=== PATIENT | male | born 1995 | race Two or more races ===

== ENCOUNTER 2018-11-22 07:34 | Day surgery (SDC) | payer BC ==
[~2018-11-22] VITALS: Ht 190.5 cm; Wt 76.2 kg
[2018-11-22] VITALS (8 sets, daily range): BP systolic 107–125; BP diastolic 47–74
[2018-11-22] MEDS ORDERED: NKM (08:07)
--- NOTE | 2018-11-22 09:28 | Anethesia Preoperative Eval ---
Anesthesia Pre-op PMH/ROS General Date of Evaluation: Nov 22, 2018 Time of Evaluation: 09:23 Anesthesiologist: Martine ASA Score: ASA 2 Mallampati Score Class I : Soft palate, uvula, fauces, pillars visible Class II: Soft palate, uvula, fauces visible Class III: Soft palate, base of uvula visible Class IV: Only hard plate visible Mallampati Classification: Class II Surgeon: Jg Diagnosis: Abdominal pain Surgical Procedure: Colonosccopy Anesthesia History: none Family History: no anesthesia problems Allergies: Coded Allergies: No Known Allergies (Unverified , 11/22/18) Medications: see eMAR Patient NPO?: Yes Past Medical History Cardiovascular: Denies: HTN, CAD, [place], valve dz, arrhythmia, other Pulmonary: Denies: asthma, COPD, ANGELIKA, other Gastrointestinal/Genitourinary: Reports: GERD - mild; Denies: CRI, ESRD, other Neurologic/Psychiatric: Reports: depression/anxiety; Denies: dementia, CVA, TIA, other Endocrine: Denies: DM, hypothyroidism, steroids, other HEENT: Denies: cataract (L), cataract (R), glaucoma, [place] (L), [place] [facility] [facility] [place] (R), other Hematology/Immune: Reports: anemia - mild, other - Lymphoma in remission s/p chemo; Denies: DVT, bleeding disorder Musculoskeletal/Integumentary: Denies: OA, RA, DJD, DDD, edema, other PMH Narrative: as above PSxH Narrative: see H&P Anesthesia Pre-op Phys. Exam Physician Exam Last Vital Signs Date Time Temp Pulse Resp B/P (MAP) Pulse Ox O2 Delivery O2 Flow Rate FiO2 11/22/18 08:53 97.5 60 18 119/74 100 Room Air Constitutional: NAD Neurologic: CN 2-12 intact Cardiovascular: RRR, no M/R/G Respiratory: CTA Gastrointestinal: S/NT/ND Airway Exam Mallampati Score: Class II MO: full Neck: flexible ROM: full Teeth: intact Dentures: no upper, no lower Anesthesia Pre-op A/P Labs see chart Risk Assessment & Plan Assessment: ASA 2 Plan: Mo Woody MD Nov 22, 2018 09:28
--- NOTE | 2018-11-22 09:46 | Pre-Procedure Note/Attestation ---
Pre-Procedure Note/Attestation Complete Prior to Procedure Planned Procedure: not applicable Procedure Narrative: colonoscopy Indications for Procedure Pre-Operative Diagnosis: abd pain Attestation I attest that I discussed the nature of the procedure; its benefits; risks and complications; and alternatives (and the risks and benefits of such alternatives ), prior to the procedure, with the patient (or the patient's legal registered representative). I attest that, if there was a reasonable possibility of needing a blood transfusion, the patient (or the patient's legal registered representative) was given the [facility] standardized written summary, pursuant to the [employer] Manuel Low Blood Safety Act ([place] Health and Safety Code # 1645, as amended). I attest that I re-evaluated the patient just prior to the surgery and that there has been no change in the patient's H&P, except as documented below: Nelson Gregorio MD Nov 22, 2018 09:46
--- NOTE | 2018-11-22 09:47 | Short Stay Surgery H&P ---
History of Present Illness History of Present Illness Chief Complaint positive stool for calprotectin HPI Sherwin Bond is a 23 year old male who was admitted on for Abdominal Pain, Constipated,Diarrhea, [place] In Patient History Allergies: Coded Allergies: No Known Allergies (Unverified , 11/22/18) PAST MEDICAL HISTORY: (1) Lymphoma Medication History Scheduled No Known Medications* (NKM - No Known Medications*), 0 ., (Reported) Review of Systems Cardiovascular: Reports: no symptoms Respiratory: Reports: no symptoms Skeletal: Reports: no symptoms Gastrointestinal: Reports: no symptoms Genitourinary: Reports: no symptoms Neurologic: Reports: no symptoms Endocrine: Reports: no symptoms Hematologic: Reports: no symptoms Physical Exam Vital Signs Last Vital Signs Date Time Temp Pulse Resp B/P (MAP) Pulse Ox O2 Delivery O2 Flow Rate FiO2 11/22/18 08:53 97.5 60 18 119/74 100 Room Air Skin: normal HENT: normal Heart: normal Lungs: normal Extremities: normal Plan Plan of Care colonoscopy Attestation Are the patient's medical conditions optimized for surgery? Attestation Response: yes Nelson Gregorio MD Nov 22, 2018 09:47
[2018-11-22] MEDS ORDERED: fentaNYL 100 mcg/2 mL IV ONE (10:00)
[2018-11-22] MEDS ORDERED: Midazolam 2mg/2ml Inj ONE (10:00)
[2018-11-22] MEDS ORDERED: Propofol 200mg/20ml IV ONE (10:00)
[2018-11-22] MEDS ORDERED: LR 1000ml 1,000 ML IVLG SCH (10:04)
--- NOTE | 2018-11-22 10:07 | Endoscopy Procedure Note ---
Endoscopy Procedure Note General Indication for Procedure: r/o colitis Procedures Performed: colonoscopy Operative Findings/Diagnosis: hemorrhoids Specimen: yes Pt Tolerated Procedure Well: Yes Estimated Blood Loss: none Anesthesia Anesthesiologist: joie Anesthesia: MAC Inserted Devices Implant(s) used?: No Quality Quality of Bowel Preparation: Good Did scope reach the cecum?: Yes Was there any complications?: No GI Core Measures 50 yrs or older w/o bx or poly: No 10yrs. F/U recommended: Yes If not recommended, why?: Above average risk 18 years or older w/prev. colo: No Nelson Gregorio MD Nov 22, 2018 10:07
[2018-11-22] MEDS ORDERED: fentaNYL 100 mcg/2 mL IV PRN (10:15)
--- NOTE | 2018-11-22 10:18 | Immediate Post-Op Evaluation ---
Immediate Post-Op Evalulation Immediate Post-Op Evalulation Procedure: Colonoscopy Date of Evaluation: Nov 22, 2018 Time of Evaluation: 10:16 IV Fluids: 500 Blood Products: none Estimated Blood Loss: min Urinary Output: none Blood Pressure Systolic: 104 Blood Pressure Diastolic: 56 Pulse Rate: 68 Respiratory Rate: 20 O2 Sat by Pulse Oximetry: 98 Temperature (Fahrenheit): 97.6 Pain Score (1-10): 1 Nausea: No Vomiting: No Complications none Patient Status: awake, patent, none Hydration Status: adequate Mo Farley MD Nov 22, 2018 10:18
--- NOTE | 2018-11-22 11:45 | 48 Hour Post Anesthesia Eval ---
Post Anesthesia Evaluation Procedure: Colonoscopy Date of Evaluation: Nov 22, 2018 Time of Evaluation: 11:41 Blood Pressure Systolic: 116 0: 72 Pulse Rate: 68 Respiratory Rate: 20 Temperature (Fahrenheit): 97.6 O2 Sat by Pulse Oximetry: 99 Airway: patent Nausea: No Vomiting: No Pain Intensity: 1 Hydration Status: adequate Cardiopulmonary Status: stable Mental Status/LOC: patient returned to baseline Follow-up Care/Observations: n/a Post-Anesthesia Complications: none Follow-up care needed: ready to discharge Mo Farley MD Nov 22, 2018 11:45
--- NOTE | 2018-11-22 17:45 | Procedure Note ---
DATE OF PROCEDURE: 11/22/2018 SURGEON: Nelson Gregorio M.D. PROCEDURE: Colonoscopy with biopsy. ANESTHESIOLOGIST: Mo Farley M.D. INSTRUMENT: Olympus adult flexible colonoscope. INDICATION: Positive calprotectin and abdominal pain. REASON FOR PROCEDURE: The procedure, risks, benefits, and possible consequences, including hemorrhage, aspiration, perforation and infection, and alternative treatments, were explained to the patient/legal guardian by Dr. Nelson Gregorio and the patient/legal guardian understood and accepted these risks. PROCEDURE IN DETAIL: After informed consent was obtained and the patient was adequately sedated, first rectal exam was performed, which was normal. Then, the scope advanced from the rectum into the cecum then subsequently into the terminal ileum. Quality of prep was very good. The patient had some bumpy mucosa in the terminal ilium, which was biopsied. Otherwise, the rest of the colonic examination grossly looked within normal limits. Retroflexion of rectum showed evidence of internal hemorrhoids. SUMMARY OF FINDINGS: 1. Bumpy mucosa in the terminal ileum status post biopsy. Otherwise, normal colonoscopy examination. 2. Internal hemorrhoids. RECOMMENDATIONS: Follow up pathology and treat accordingly. I want to thank, Dr. Nelson Garcia, for this kind referral. Nelson Gregorio M.D. DR: ESTELA JOB#: [id number] CC: Nelson Garcia M.D.; Fax#: [phone]
== END 2018-11-22 11:15 | disposition home or self-care (01) ==
LOC: GAS 07:34
DX: R10.9 Unspecified abdominal pain (principal); K64.8 Other hemorrhoids; Z85.72 Personal history of non-Hodgkin lymphomas; K21.9 Gastro-esophageal reflux disease without esophagitis; F32.9 Major depressive disorder, single episode, unspecified; F41.9 Anxiety disorder, unspecified
CPT/HCPCS: 45380; J2250; J2704; J3010; 94003; 94150